=== PATIENT | male | born 1965 | race Caucasian/White ===

== ENCOUNTER 2018-03-27 06:54 | Day surgery (SDC) | payer OTHER ==
[~2018-03-27 06:54] MED LIST: CEFAZOLIN 2 GM/50 ML (PMX) 50 ML IVPB; SOD CHLORIDE 0.9% 1,000 ML IV
[2018-03-27] MEDS ORDERED: BUPIVACAINE 0.25% (MPF) 30 ML INJ (06:58)
[2018-03-27] MEDS ORDERED: ROCURONIUM 50 MG INJ ×2 (07:00→08:32)
[2018-03-27] MEDS ORDERED: MEPERIDINE 25 MG INJ IV (08:30)
[2018-03-27] MEDS ORDERED: MIDAZOLAM 1 MG/ML 2 ML INJ IV (08:30)
[2018-03-27] MEDS ORDERED: ALBUTEROL 0.083% (NEB) 2.5 MG/3 ML AMP HHN (08:30)
[2018-03-27] MEDS ORDERED: KETOROLAC 30 MG INJ IV (08:30)
[2018-03-27] MEDS ORDERED: hydrALAzine 20 MG INJ IV (08:30)
[2018-03-27] MEDS ORDERED: ONDANSETRON 4 MG INJ IV (08:30)
[2018-03-27] MEDS ORDERED: DIPHENHYDRAMINE 50 MG INJ IV (08:30)
[2018-03-27] MEDS ORDERED: OXYCODONE/ACETAMINOPHEN (5/325) TAB PO ×2 (08:30)
[2018-03-27] MEDS ORDERED: METOCLOPRAMIDE 10 MG INJ IV (08:30)
[2018-03-27] MEDS ORDERED: HYDROmorphONE 1 MG/5 ML IV SYRINGE IV ×2 (08:30)
[2018-03-27] MEDS ORDERED: FENTAnyl 50 MCG/ML VIAL IV ×3 (08:30)
[2018-03-27] MEDS ORDERED: LABETALOL HCL 20MG INJ IV (08:30)
[2018-03-27] MEDS ORDERED: EPHEDrine SULFATE 50 MG/5 ML SYG IV (08:30)
[2018-03-27] MEDS ORDERED: PROPOFOL 20 ML (08:31)
[2018-03-27] MEDS ORDERED: LIDOCAINE 2% (SDV) 5 ML INJ (08:32)
[2018-03-27] MEDS ORDERED: ACETAMINOPHEN 1000MG/100ML IV 100 ML (08:35)
[2018-03-27] MEDS ORDERED: CEFAZOLIN 1 GM INJ (08:50)
[2018-03-27] MEDS ORDERED: ONDANSETRON 4 MG INJ (08:50)
[2018-03-27] MEDS ORDERED: DEXAMETHASONE 4 MG/ML 1 ML INJ (08:50)
[2018-03-27] MEDS: BUPIVACAINE 0.25% (MPF) 30 ML INJ INJ ×2 (09:01)
[2018-03-27] MEDS: POLYMYXIN/BACITRACIN 1L IRRIG IRR ×2 (09:01)
[2018-03-27] MEDS ORDERED: NEOSTIGMINE 3 MG/3 ML SYRINGE (09:32)
[2018-03-27] MEDS ORDERED: GLYCOPYRROLATE 0.4 MG INJ (09:32)
[2018-03-27] MEDS ORDERED: HYDROCODONE/APAP (5/325) TAB PO (10:00)
[2018-03-27] MEDS: HYDROmorphONE 1 MG/5 ML IV SYRINGE IV ×2 (10:15→10:27)
== END 2018-03-27 11:30 | disposition home or self-care (01) ==
LOC: SDS 06:54
DX: K40.30 Unilateral inguinal hernia, with obstruction, without gangrene, not specified as recurrent (principal)
CPT/HCPCS: 49507

== ENCOUNTER 2019-01-15 08:06 | Day surgery (SDC) | payer OTHER ==
[2019-01-15] MEDS ORDERED: CEFAZOLIN 2 GM/50 ML (PMX) 50 ML IVPB (09:00)
[2019-01-15] MEDS ORDERED: SOD CHLORIDE 0.9% 1,000 ML IV (09:00)
[2019-01-15 09:03] LABS: ADD MAN DIFF? NO
[2019-01-15 09:10] LABS: WHITE BLOOD COUNT 4.9 10^3/ul (4.8-10.8)
[2019-01-15 09:10] LABS: BASOPHILS % 0.6 % (0.0-2.0); EOSINOPHILS # 0.1 10^3/ul (0.0-0.5); HEMATOCRIT 42.7 % (42.0-52.0); HEMOGLOBIN 14.9 g/dl (14.0-18.0); LYMPHOCYTES # 1.4 10^3/ul (0.8-2.9); LYMPHOCYTES % 28.1 % (15.0-51.0); MEAN CORPUSCULAR HEMOGLOBIN 31.2 pg (29.0-33.0); MEAN CORPUSCULAR HGB CONC 34.9 g/dl (32.0-37.0); MEAN CORPUSCULAR VOLUME 89.5 fl (82.0-101.0); MEAN PLATELET VOLUME 9.6 fl (7.4-10.4); MONOCYTE # 0.4 10^3/ul (0.3-0.9); MONOCYTES % 8.5 % (0.0-11.0); NEUTROPHILS % 61.6 % (39.0-77.0); PLATELET COUNT 229 10^3/UL (140-415); RED BLOOD COUNT 4.77 10^6/ul (4.70-6.10)
[2019-01-15 09:28] LABS: INR 1.01; PROTIME 13.4 Sec (11.9-14.9)
[2019-01-15 09:29] LABS: PARTIAL THROMBOPLASTIN TIME 29.8 Sec (23.0-35.0)
[2019-01-15 09:33] LABS: ALANINE AMINOTRANSFERASE 26 IU/L (13-69); ALBUMIN 4.3 g/dl (3.3-4.9); ALKALINE PHOSPHATASE 74 IU/L (42-121); ANION GAP 8 (5-13); ASPARTATE AMINO TRANSFERASE 25 IU/L (15-46); BILIRUBIN,INDIRECT 0.6 mg/dl (0-1.1); BILIRUBIN,TOTAL 0.6 mg/dl (0.2-1.3); BLOOD UREA NITROGEN 16 mg/dl (7-20); CALCIUM 9.4 mg/dl (8.4-10.2); CARBON DIOXIDE 27 mmol/L (21-31); CHLORIDE 108 mmol/L (97-110); CREATININE 0.89 mg/dl (0.61-1.24); Estimated GFR > 60 mL/min (>60); GLUCOSE 122 mg/dl (70-220); POTASSIUM 4.3 mmol/L (3.5-5.1); SODIUM 143 mmol/L (135-144); TOTAL PROTEIN 7.6 g/dl (6.1-8.1)
[2019-01-15] MEDS ORDERED: ROCURONIUM 50 MG INJ (11:11)
[2019-01-15] MEDS ORDERED: LIDOCAINE 2% (SDV) 5 ML INJ (11:11)
[2019-01-15] MEDS ORDERED: GLYCOPYRROLATE 0.4 MG INJ ×3 (11:11→11:33)
[2019-01-15] MEDS ORDERED: PROPOFOL 20 ML (11:11)
[2019-01-15] MEDS ORDERED: SUCCINYLCHOLINE CHLORIDE 100 MG/5 ML SYG IV (11:11)
[2019-01-15] MEDS ORDERED: NEOSTIGMINE 3 MG/3 ML SYRINGE ×2 (11:11→11:33)
[2019-01-15] MEDS ORDERED: CEFAZOLIN 1 GM INJ (11:34)
[2019-01-15] MEDS: POLYMYXIN/BACITRACIN 1L IRRIG (11:49)
[2019-01-15] MEDS ORDERED: HYDROmorphONE 1 MG/5 ML IV SYRINGE IV (12:00)
[2019-01-15] MEDS ORDERED: LABETALOL HCL 20MG INJ IV (12:00)
[2019-01-15] MEDS ORDERED: OXYCODONE/ACETAMINOPHEN (5/325) TAB PO ×2 (12:00)
[2019-01-15] MEDS ORDERED: DIPHENHYDRAMINE 50 MG INJ IV (12:00)
[2019-01-15] MEDS ORDERED: FENTAnyl 50 MCG/ML VIAL IV ×3 (12:00)
[2019-01-15] MEDS ORDERED: hydrALAzine 20 MG INJ IV (12:00)
[2019-01-15] MEDS ORDERED: METOCLOPRAMIDE 10 MG INJ IV (12:00)
[2019-01-15] MEDS ORDERED: EPHEDrine SULFATE 50 MG/5 ML SYG IV (12:00)
[2019-01-15] MEDS ORDERED: MIDAZOLAM 1 MG/ML 2 ML INJ IV (12:00)
[2019-01-15] MEDS: BUPIVACAINE 0.25% (MPF) 30 ML INJ (12:24)
[2019-01-15] MEDS: HYDROmorphONE 1 MG/5 ML IV SYRINGE IV ×2 (12:36→12:48)
[2019-01-15] MEDS: MEPERIDINE 25 MG INJ IV (12:36)
[2019-01-15] MEDS: ONDANSETRON 4 MG INJ IV (12:37)
[2019-01-15] MEDS: HYDROCODONE/APAP (5/325) TAB PO (13:55)
== END 2019-01-15 14:33 | disposition home or self-care (01) ==
LOC: SDS 08:06
DX: K40.31 Unilateral inguinal hernia, with obstruction, without gangrene, recurrent (principal)
CPT/HCPCS: 49651; 71045; 80053; 85025; 85610; 85730; 93005